=== PATIENT | male | born 1995 | race Caucasian/White ===

== ENCOUNTER → 2019-07-07 | Outpatient (CLI) | payer OTHER ==
[2019-07-07 11:12] LABS: HEMATOCRIT 47.1 % (42.0-52.0); MEAN CORPUSCULAR HGB 28.5 pg (27.0-31.0); MEAN PLATELET VOLUME 11.9 fl (9.6-12.3); RED BLOOD COUNT 5.61 10*6/uL (4.50-5.90); WHITE BLOOD COUNT 7.6 10*3/uL (4.8-10.8)
[2019-07-07 11:38] LABS: ALBUMIN 4.5 gm/dl (3.1-4.5); ALKALINE PHOSPHATASE 74 U/L (45-117); BUN 12 mg/dl (7-24); CHLORIDE 104 mmol/L (98-107); CHOLESTEROL 182 mg/dL (<200); CREATININE 1.01 mg/dL (0.70-1.30); HDL CHOLESTEROL 37 mg/dl (40-60); LDL CHOLESTEROL 89 mg/dL (9-159); SGOT/AST 38 IU/L (3-35); SGPT/ALT 73 U/L (12-78); SODIUM 137 mmol/L (136-145); TOTAL PROTEIN 8.1 gm/dL (6.4-8.2); TRIGLYCERIDES 281 mg/dl (<150); VLDL CHOLESTEROL 56 mg/dL (6-40)
== END | disposition home or self-care (01) ==
LOC: LAB 10:38
PROVIDERS: Family Medicine
DX: R53.83 Other fatigue (principal); R05 Cough; R63.5 Abnormal weight gain

== ENCOUNTER → 2019-08-02 | Outpatient (CLI) | payer OTHER ==
[2019-08-02 08:15] LABS: BILIRUBIN, DIRECT 0.2 mg/dL (0.0-0.2)
[2019-08-03 16:10] LABS: ANTI-SMOOTH MUSCLE ANTIBODY 7 Units (0-19)
== END | disposition home or self-care (01) ==
LOC: US 07:10 → LAB 07:10 → US 07:30
PROVIDERS: Family Medicine
DX: E88.89 Other specified metabolic disorders (principal)

== ENCOUNTER → 2022-06-15 | Day surgery (SDC) | payer OTHER ==
[~2022-06-15] VITALS: Ht 172.7 cm; Wt 113.4 kg
[2022-06-15 07:15] VITALS: BP 130/79
[2022-06-15 08:27] VITALS: BP 119/74
[2022-06-15 08:42] VITALS: BP 120/69
[2022-06-15 08:56] VITALS: BP 124/72
== END | disposition home or self-care (01) ==
LOC: SDC 06-10 11:00
PROVIDERS: ATTEND Specialist
DX: H65.492 Other chronic nonsuppurative otitis media, left ear (principal)